=== PATIENT | female | born 1965 | race Hispanic/Latino ===

== ENCOUNTER → 2018-08-11 | Outpatient (CLI) | payer OTHER ==
[~2018-08-11] MED LIST: CLONAZEPAM0.5 MG PO; HYDROXYCHLOROQ200 MG PO; MELOXICAM15 MG PO; NAPROXEN500 MG PO; PROAIR HFA INH8.5 GM INH; VALIUM5 MG PO; VIIBRYD40 MG PO
== END ==
LOC: MAMMO 16:00
PROVIDERS: ATTEND Student in an Organized Health Care Education/Training Program
DX: Z12.31 Encounter for screening mammogram for malignant neoplasm of breast (principal)
CPT/HCPCS: 77067

== ENCOUNTER → 2019-04-22 | Outpatient (CLI) | payer OTHER ==
--- NOTE | 2019-04-22 14:04 | Diagnostic Imaging Report ---
EXAM: CHEST 2 VIEWS DATE: 04/22/2019 12:57 PM INDICATION: Upper abdominal pain COMPARISON: None IMPRESSION: The trachea is midline. There is a well-defined 9 mm radiopaque nodular density within the left lower lobe likely representing a calcified granuloma. The lungs are otherwise symmetrically expanded without evidence for focal consolidation, pneumothorax, or significant pleural effusion. The cardiomediastinal silhouette and pulmonary vasculature are within normal limits. No acute osseous abnormality is identified. Signed by: Dr. Carloz Tsang MD on 04/22/2019 2:01 PM
--- NOTE | 2019-04-22 14:06 | Diagnostic Imaging Report ---
EXAM: ABDOMEN 2 VIEW DATE: 04/22/2019 12:58 PM INDICATION: Upper abdominal pain COMPARISON: None FINDINGS: Bowel gas pattern appears nonobstructive. No pathologically dilated loops of bowel are identified. Cholecystectomy clips noted within the right upper quadrant. Phleboliths are noted within the pelvis. No other abnormal intra-abdominal calcification is appreciated. No intraperitoneal free air is appreciated. No acute osseous abnormality identified. IMPRESSION: No acute radiographic abnormality identified within the abdomen. Signed by: Dr. Carloz Tsang MD on 04/22/2019 2:02 PM
== END ==
LOC: RAD 12:49
PROVIDERS: ATTEND Internal Medicine
DX: R07.9 Chest pain, unspecified (principal); R10.10 Upper abdominal pain, unspecified
CPT/HCPCS: 71046; 74019

== ENCOUNTER → 2019-10-14 | Outpatient (CLI) | payer OTHER | LOC: MAMMO 15:29 | PROVIDERS: ATTEND Internal Medicine | DX: Z12.31 Encounter for screening mammogram for malignant neoplasm of breast (principal) | CPT/HCPCS: 77067 ==

== ENCOUNTER → 2020-08-08 | Outpatient (CLI) | payer OTHER | LOC: MAMMO 14:57 | PROVIDERS: ATTEND Internal Medicine | DX: Z12.31 Encounter for screening mammogram for malignant neoplasm of breast (principal) ==

== ENCOUNTER → 2021-02-21 | Outpatient (CLI) | payer OTHER | LOC: MAMMO 12:05 | PROVIDERS: ATTEND Internal Medicine | DX: Z12.31 Encounter for screening mammogram for malignant neoplasm of breast (principal) | CPT/HCPCS: 77067 ==

== ENCOUNTER → 2021-10-27 | Outpatient (CLI) | payer OTHER | LOC: RAD 15:37 | PROVIDERS: ATTEND Internal Medicine | DX: R10.31 Right lower quadrant pain (principal) | CPT/HCPCS: 71046; 74018 ==

== ENCOUNTER → 2022-03-23 | Outpatient (CLI) | payer OTHER | LOC: MAMMO 11:56 | PROVIDERS: ATTEND Internal Medicine | DX: Z12.31 Encounter for screening mammogram for malignant neoplasm of breast (principal) | CPT/HCPCS: 77067 ==

== ENCOUNTER → 2024-07-28 | Outpatient (REF) | payer MEDICARE | LOC: MAMMO 09:02 | PROVIDERS: ATTEND Internal Medicine | DX: Z12.31 Encounter for screening mammogram for malignant neoplasm of breast (principal) | CPT/HCPCS: 77067 ==